=== PATIENT | female | born 1950 | race Caucasian/White ===

== ENCOUNTER 2022-01-03 10:41 | Inpatient (IN) ==
[2022-01-03] MEDS ORDERED: SOLU-Medrol 125 MG VIAL IVP NR (10:48)
[2022-01-03] MEDS ORDERED: LEVAQUIN PREMIX IV 750 MG 750 MG/150 ML BAG IV SCH (11:00)
[2022-01-03 11:40] LABS: BASOPHILS # (AUTO) 0.2 X10^3/uL (0.0-0.1); BASOPHILS % (AUTO) 1.6 % (0.2-1.0); EOSINOPHILS # (AUTO) 0.5 x10^3/uL (0.0-0.2); HEMATOCRIT 36.9 % (36.0-47.0); HEMOGLOBIN 12.6 g/dL (12.0-16.0); LYMPHOCYTES # (AUTO) 1.8 X10^3/uL (1.3-2.9); LYMPHOCYTES % (AUTO) 15.8 % (21.0-51.0); MEAN CORPUSCULAR HEMOGLOBIN 30.2 pg (27.0-34.0); MEAN CORPUSCULAR HGB CONC 34.1 g/dL (33.0-35.0); MEAN CORPUSCULAR VOLUME 88.6 fL (80.0-100.0); MEAN PLATELET VOLUME 6.3 fL (7.4-11.0); MONOCYTES # (AUTO) 0.9 x10^3/uL (0.3-0.8); MONOCYTES % (AUTO) 7.7 % (0.0-13.0); NEUTROPHILS # (AUTO) 8.1 x10^3/uL (2.2-4.8); NEUTROPHILS % (AUTO) 70.9 % (42.0-75.0); RED BLOOD COUNT 4.17 X10^6/uL (3.5-5.4); RED CELL DISTRIBUTION WIDTH 16.2 % (11.6-16.5); WHITE BLOOD COUNT 11.4 X10^3/uL (3.6-10.0)
[2022-01-03 11:49] LABS: ALANINE AMINOTRANSFERASE 33 Units/L (12-78); ALBUMIN 2.5 g/dL (3.4-5.0); ALKALINE PHOSPHATASE 146 Units/L (46-116); ASPARTATE AMINO TRANSFERASE 32 Units/L (15-37); BLOOD UREA NITROGEN 21 mg/dL (7-18); CALCIUM 8.7 mg/dL (8.5-10.1); CARBON DIOXIDE 31.6 mmol/L (21-32); CHLORIDE 99 mmol/L (98-107); COR CA(FOR HYPOALB) 9.9 mg/dL (8.5-10.1); SODIUM 136 mmol/L (136-145); TOTAL PROTEIN 7.8 g/dL (6.4-8.2); eGFR NON BLACK RACES > 60 (>60)
[2022-01-03 12:58] VITALS: BMI 23.3
[2022-01-03] MEDS ORDERED: NS 1/2 1,000 ML IV 1,000 ML IV ONE (13:31)
[2022-01-03] MEDS: DUONEB 0.5 MG/3 MG (3 mL) NEB SCH ×3 (14:04→20:23)
[2022-01-03] MEDS: NS 1/2 1,000 ML IV 1,000 ML IV SCH (14:50)
[2022-01-03] MEDS: FORTAZ or TAZICEF VIAL INJ 1 G in NS 100 ML IV 100 ML IV SCH ×2 (14:50→21:11)
[2022-01-03] MEDS: LEVAQUIN PREMIX IV 500 MG 500 MG/100 ML BAG IV SCH (16:05)
[2022-01-03] MEDS ORDERED: COLACE CAP 100 MG PO ONE (19:44)
[2022-01-03] MEDS ORDERED: SOLU-Medrol 40 MG VIAL ONE (19:44)
--- NOTE | 2022-01-03 19:51 | RAD ---
EXAM: CHEST X-RAYHISTORY: Pneumonia.TECHNIQUE: PA and lateral chest x-ray.COMPARISON: None available.FINDINGS:The heart size and mediastinum are within normal limits. The visualized bony structures are within normal limits.There is mild prominence of the bronchopulmonary markings, most prominent in the lower lung rosas, right greater than left; DDX includes mild noncardiogenic pulmonary congestion, bronchitis, and bronchopneumonia (especially in the right lower lobe) in the appropriate clinical setting. Clinical correlation is advised.No focal lung consolidation/mass, pleural effusion, or pneumothorax is seen.IMPRESSION:1. Mild prominence of the bronchopulmonary markings, most prominent in the lower lung rosas, right greater than left; DDX includes mild noncardiogenic pulmonary congestion, bronchitis, and bronchopneumonia (especially in the right lower lobe) in the appropriate clinical setting. Clinical correlation is advised.2. Recommend clinical correlation and appropriate follow-up x-ray evaluation to ensure interval clearance as clinically warranted.3. Consider follow evaluation with noncontrast chest CT for further characterization as clinically warranted.Electronically signed by: Jacob Alejandre (Jan 03, 2022 19:49:45)
[2022-01-03] MEDS: PULMICORT NEB TX 0.5 MG NEB SCH (20:23)
[2022-01-03] MEDS ORDERED: COLACE CAP 100 MG PO SCH (21:00)
[2022-01-03] MEDS: SOLU-Medrol 40 MG VIAL IVP SCH ×2 (21:11→21:12)
[2022-01-04] MEDS: DUONEB 0.5 MG/3 MG (3 mL) NEB SCH ×6 (00:32→21:16)
[2022-01-04] MEDS: FORTAZ or TAZICEF VIAL INJ 1 G in NS 100 ML IV 100 ML IV SCH ×3 (05:09→21:02)
[2022-01-04] MEDS: SOLU-Medrol 40 MG VIAL IVP SCH ×3 (05:10→21:02)
[2022-01-04 05:33] LABS: BASOPHILS % (AUTO) 0.4 % (0.2-1.0); HEMATOCRIT 30.8 % (36.0-47.0); LYMPHOCYTES # (AUTO) 0.8 X10^3/uL (1.3-2.9); LYMPHOCYTES % (AUTO) 11.2 % (21.0-51.0); MEAN CORPUSCULAR HEMOGLOBIN 30.1 pg (27.0-34.0); MEAN CORPUSCULAR HGB CONC 34.4 g/dL (33.0-35.0); MEAN CORPUSCULAR VOLUME 87.5 fL (80.0-100.0); MEAN PLATELET VOLUME 6.6 fL (7.4-11.0); MONOCYTES # (AUTO) 0.1 x10^3/uL (0.3-0.8); MONOCYTES % (AUTO) 1.8 % (0.0-13.0); NEUTROPHILS # (AUTO) 6.3 x10^3/uL (2.2-4.8); NEUTROPHILS % (AUTO) 86.6 % (42.0-75.0); RED BLOOD COUNT 3.52 X10^6/uL (3.5-5.4); RED CELL DISTRIBUTION WIDTH 15.8 % (11.6-16.5); WHITE BLOOD COUNT 7.3 X10^3/uL (3.6-10.0)
[2022-01-04 05:40] LABS: HEMOGLOBIN 10.6 g/dL (12.0-16.0)
[2022-01-04 05:49] LABS: ALANINE AMINOTRANSFERASE 29 Units/L (12-78); ALBUMIN 2.3 g/dL (3.4-5.0); ALKALINE PHOSPHATASE 129 Units/L (46-116); ASPARTATE AMINO TRANSFERASE 27 Units/L (15-37); BLOOD UREA NITROGEN 22 mg/dL (7-18); CALCIUM 7.9 mg/dL (8.5-10.1); CARBON DIOXIDE 28.3 mmol/L (21-32); CHLORIDE 99 mmol/L (98-107); COR CA(FOR HYPOALB) 9.3 mg/dL (8.5-10.1); COR NA(FOR HYPERGLY) 138 mmol/L (136-145); CREATININE 0.68 mg/dL (0.55-1.02); SODIUM 137 mmol/L (136-145); TOTAL PROTEIN 7.2 g/dL (6.4-8.2); eGFR NON BLACK RACES > 60 (>60)
[2022-01-04 06:24] LABS: ABG ALLEN TEST POS; ABG BASE EXCESS 5.6 mmol/L (-2.0-2.0); ABG HCO3 29.8 mmol/L (22-26)
[2022-01-04] MEDS: NS 1/2 1,000 ML IV 1,000 ML IV SCH ×3 (07:31→15:18)
--- NOTE | 2022-01-04 07:34 | RAD ---
HISTORYCOPD; HYPOXIASTUDYCHEST, 1 VIEWCOMPARISONOne day prior.TECHNIQUEAP view of the chestFINDINGSCardiac and mediastinal contours are within normal limits. Lungs are hyperexpanded. Similar appearing patchy bibasilar opacities. Blunted right costophrenic sulcus. No pneumothorax.IMPRESSIONLung hyper expansion consistent with COPD. Patchy bibasilar opacities suspicious for pneumonia. Blunted right costophrenic sulcus can be seen with small pleural effusion or pleuro-parynchemal scarring.Electronically signed by: Joseph Hdz (Jan 04, 2022 07:33:06)
[2022-01-04] MEDS: PULMICORT NEB TX 0.5 MG NEB SCH ×2 (08:40→21:16)
[2022-01-04] MEDS: LOVENOX INJ 40 MG SYR SC SCH (09:20)
[2022-01-04] MEDS: COLACE CAP 100 MG PO SCH (09:20)
[2022-01-04] MEDS: LEVAQUIN PREMIX IV 500 MG 500 MG/100 ML BAG IV SCH (09:20)
[2022-01-04] MEDS: NORVASC TAB 5 MG PO SCH (09:20)
[2022-01-04] MEDS: ZyPREXA TAB 5 MG PO SCH ×2 (09:43→20:35)
--- NOTE | 2022-01-04 12:45 | DR.H&P ---
H&P History & Physical for Day of: H&P Date: 01/03/22 Chief Complaint Chief Complaint: Dyspnea and shortness of breath Allergies Allergies Allergy/AdvReac Type Severity Reaction Status Date / Time No Known Drug Allergies Allergy Verified 01/03/22 12:59 History of Present Illness History of Present Illness: This is a 71-year-old white female who presented to my office as a new patient today. She reported being in the hospital in [facility] in [place], [place] a few weeks ago. Since then she has developed worsening shortness of breath and dyspnea. She called the office a week ago we were not able to see her at that time as a new patient. She reported that her O2 sats were in the upper 80s at that time and she was instructed to go to the emergency department. Here in office today she reports she never went to the ER and is noted she has a O2 sat of 81% on room air my office. She has audible chest congestion without auscultation in is tachypneic as well. She is breathing nearly 30 times a minute here in the office so I decided to go ahead and direct admit her. Her reasoning for not going to the emergency department last week was she did not want a wait in the ER to be seen. I direct admitted her to the ICU start her home jet nebs along with IV Solu-Medrol and IV Fortaz and Nestor says she has a history of COPD with multiple exacerbations. She reports this have stopped smoking 20 years ago. Past Medical History Past Medical History: COPD Past Surgical History Surgical History: Appendectomy and Cholecystectomy Family History Family Medical History: Diabetes Mellitus and Cancer Social History Does patient currently use any type of tobacco product: No Have you used tobacco products in the last 12 months: No Type of Tobacco Use: None Does any household member use tobacco: Yes Alcohol Use: None Drug Use: None Medications Home Medications: No Known Drug Allergies Allergy (Verified 01/03/22 12:59) CONTINUE taking the following medications acetaminophen 325 mg capsule (Tylenol) 500 mg Q6HR PRN 01/03/22 [History] albuterol 90 mcg/actuation aerosol inhaler See Rx Instructions .Route .COMPLEX PRN 01/03/22 [History] albuterol sulfate 90 mcg/actuation aerosol inhaler (ProAir HFA) 2 puff inhalation Q4HR PRN 01/03/22 [History] amlodipine 5 mg tablet 5 mg DAILY 01/03/22 [History] budesonide-formoterol HFA 160 mcg-4.5 mcg/actuation aerosol inhaler (Symbicort) 1 puff inhalation BID 01/03/22 [History] docusate sodium 100 mg capsule 100 mg PO DAILY 01/03/22 [History] fluticasone 250 mcg-salmeterol 50 mcg/dose blistr powdr for inhalation 1 ea inhalation BID 01/03/22 [History] loratadine 10 mg tablet 10 mg QAM 01/03/22 [History] magnesium hydroxide 400 mg/5 mL oral suspension (Milk of Magnesia) 30 ml DAILY P RN 01/03/22 [History] avcvejxx-tji-rrpkw acid 0.4 mg-lycopene 300 mcg-lutein 250 mcg tablet (Centrum Silver) 1 tab PO DAILY 01/03/22 [History] olanzapine 5 mg tablet (Zyprexa) 5 mg BID 01/03/22 [History] pravastatin 10 mg tablet 10 mg QHS 01/03/22 [History] tiotropium bromide 18 mcg capsule with inhalation device (Spiriva with HandiHaler) 18 mcg inhalation DAILYAC 01/03/22 [History] tiotropium bromide 2.5 mcg/actuation mist for inhalation (Spiriva Respimat) 2 puff inhalation DAILY 01/03/22 [History] Labs Result Diagrams: 01/04/22 04:08 01/04/22 04:08 Labs: 01/03/22 11:55 Sputum - Expectorated Sputum Sputum Culture - Preliminary 01/03/22 11:55 Sputum - Expectorated Sputum - Final Laboratory WBC 7.3 X10^3/uL (3.6-10.0) 01/04/22 04:08 RBC 3.52 X10^6/uL (3.5-5.4) 01/04/22 04:08 Hgb 10.6 g/dL (12.0-16.0) L D 01/04/22 04:08 Hct 30.8 % (36.0-47.0) L 01/04/22 04:08 MCV 87.5 fL (80.0-100.0) 01/04/22 04:08 MCH 30.1 pg (27.0-34.0) 01/04/22 04:08 MCHC 34.4 g/dL (33.0-35.0) 01/04/22 04:08 RDW 15.8 % (11.6-16.5) 01/04/22 04:08 Plt Count 702 X10^3/uL (150.0-450.0) H 01/04/22 04:08 MPV 6.6 fL (7.4-11.0) L 01/04/22 04:08 Neut % (Auto) 86.6 % (42.0-75.0) H 01/04/22 04:08 Lymph % (Auto) 11.2 % (21.0-51.0) L 01/04/22 04:08 [place] % (Auto) 1.8 % (0.0-13.0) 01/04/22 04:08 Eos % (Auto) 0.0 % (0.9-2.9) L 01/04/22 04:08 Baso % (Auto) 0.4 % (0.2-1.0) 01/04/22 04:08 Neut # (Auto) 6.3 x10^3/uL (2.2-4.8) H 01/04/22 04:08 Lymph # (Auto) 0.8 X10^3/uL (1.3-2.9) L 01/04/22 04:08 [place] # (Auto) 0.1 x10^3/uL (0.3-0.8) L 01/04/22 04:08 Eos # (Auto) 0.0 x10^3/uL (0.0-0.2) 01/04/22 04:08 Baso # (Auto) 0.0 X10^3/uL (0.0-0.1) 01/04/22 04:08 Absolute Nucleated RBC 0.0 /100WBC 01/04/22 04:08 Sample Site Rrad 01/04/22 06:23 ABG pH 7.470 (7.35-7.45) H 01/04/22 06:23 ABG pCO2 41.0 mmHg (35.0-45.0) 01/04/22 06:23 ABG pO2 60.0 mmHg (80.0-100.0) L 01/04/22 06:23 ABG HCO3 29.8 mmol/L (22-26) H 01/04/22 06:23 ABG O2 Saturation 92.0 % (90-100) 01/04/22 06:23 ABG Base Excess 5.6 mmol/L (-2.0-2.0) H 01/04/22 06:23 Michael Test Pos 01/04/22 06:23 A-a Gradient 88.0 mmHg 01/04/22 06:23 FiO2 28.0 01/04/22 06:23 Blood Gas Comments Christophe abg well-mtf 01/04/22 06:23 Sodium 137 mmol/L (136-145) 01/04/22 04:08 Corrected Sodium 138 mmol/L (136-145) 01/04/22 04:08 Potassium 4.2 mmol/L (3.5-5.1) 01/04/22 04:08 Chloride 99 mmol/L (98-107) 01/04/22 04:08 Carbon Dioxide 28.3 mmol/L (21-32) 01/04/22 04:08 BUN 22 mg/dL (7-18) H 01/04/22 04:08 Creatinine 0.68 mg/dL (0.55-1.02) 01/04/22 04:08 Est GFR (MDRD) Af Amer > 60 (>60) 01/04/22 04:08 Est GFR (MDRD) Non-Af > 60 (>60) 01/04/22 04:08 Glucose 154 mg/dL (65-99) H 01/04/22 04:08 Calcium 7.9 mg/dL (8.5-10.1) L 01/04/22 04:08 Corrected Calcium 9.3 mg/dL (8.5-10.1) 01/04/22 04:08 Total Bilirubin 0.30 mg/dL (0.2-1.0) 01/04/22 04:08 AST 27 Units/L (15-37) 01/04/22 04:08 ALT 29 Units/L (12-78) 01/04/22 04:08 Alkaline Phosphatase 129 Units/L (46-116) H 01/04/22 04:08 Total Protein 7.2 g/dL (6.4-8.2) 01/04/22 04:08 Albumin 2.3 g/dL (3.4-5.0) L 01/04/22 04:08 Globulin 4.9 g/dL (2.5-4.5) H 01/04/22 04:08 Albumin/Globulin Ratio 0.5 Ratio (1.1-2.1) L 01/04/22 04:08 Review of Systems Constitutional: Weakness and Malaise Eyes: No Symptoms Reported ENT: No Symptoms Reported Respiratory: Cough, Shortness of Breath, Hemoptysis, SOB with Excertion, Sputum and Wheezing Cardiovascular: No Symptoms Reported Gastrointestinal: No Symptoms Reported Genitourinary: No Symptoms Reported Musculoskeletal: No Symptoms Reported Skin: No Symptoms Reported Neurological: No Symptoms Reported Physical Exam Vital Signs: Temperature 98.3 F Pulse Rate 93 Respiratory Rate 43 Blood Pressure 125/63 O2 Sat by Pulse Oximetry 93 Oriented: Normal, Time, Person and Place Eyes: Normal Ear: Normal Throat: Normal Respiratory: Rhonchi Throughout and Wheezes Throughout Cardiovascular: Normal Auscultation: Bowel Sounds: Normal Palpation: Normal Tenderness: Normal Skin: Normal Musculoskeletal: Normal Psychiatric: Normal Mood Description: Calm Affect: Normal Speech Pattern: Clear and Appropriate Assessment/Plan (1) COPD exacerbation: Status: Acute Plan: Jet nebs with Solu-Medrol 125 mg IV x1 then 60 mg IV every 8 hours, IV Fortaz and IV Levaquin. Check chest x-ray CMP's, CBC and ABG. We will repeat labs and chest x-ray again in the morning. (2) Hypoxia: Status: Acute Plan: Supplemental O2 via nasal cannula at 2 L (3) History of psychosis: Status: Acute Plan: Continue olanzapine
--- NOTE | 2022-01-04 12:54 | PCM.PROG ---
Progress Note Progress Note for Day of Date of Exam: 01/04/22 Subjective Subjective: The patient reports she is breathing much better today. Her O2 sat is mornings 93% on 2 L nasal cannula. Auscultation reveals she has less rhonchi and no wheezing this morning. I am going to change her from albuterol jet nebs to DuoNeb this morning. Chest x-ray shows basilar pneumonia in which she is covered with IV Fortaz and Levaquin. She has not had any psychotic episodes since admission and is stable on the olanzapine. Plan on rechecking her CBC, CMP, ABG and chest x-ray in the morning. Her ABG is improved since coming in on admission yesterday. Past Medical Family Social History Allergies: Allergies No Known Drug Allergies Allergy (Verified 01/03/22 12:59) Review of Systems ROS: No change since H&P Vital Signs and I&O's Vital Signs: Temperature 98.3 F Pulse Rate 93 Respiratory Rate 43 Blood Pressure 125/63 O2 Sat by Pulse Oximetry 93 Intake and Output: Intake & Output 01/02/22 01/03/22 01/04/22 01/05/22 11:59 11:59 11:59 11:59 Intake Total 1961 Balance 1961 Physical Exam Oriented: Normal, Time, Person and Place Eyes: Normal Ear: Normal Throat: Normal Respiratory: Right, Left and Rhonchi Cardiovascular: Normal Auscultation: Bowel Sounds: Normal Tenderness: Normal Skin: Normal Musculoskeletal: Normal Psychiatric: Normal Mood Description: Calm Affect: Normal Speech Pattern: Clear and Appropriate Laboratory and Diagnostics Result Diagrams: 01/04/22 04:08 01/04/22 04:08 Labs: 01/03/22 11:55 Sputum - Expectorated Sputum Sputum Culture - Preliminary 01/03/22 11:55 Sputum - Expectorated Sputum - Final Laboratory WBC 7.3 X10^3/uL (3.6-10.0) 01/04/22 04:08 RBC 3.52 X10^6/uL (3.5-5.4) 01/04/22 04:08 Hgb 10.6 g/dL (12.0-16.0) L D 01/04/22 04:08 Hct 30.8 % (36.0-47.0) L 01/04/22 04:08 MCV 87.5 fL (80.0-100.0) 01/04/22 04:08 MCH 30.1 pg (27.0-34.0) 01/04/22 04:08 MCHC 34.4 g/dL (33.0-35.0) 01/04/22 04:08 RDW 15.8 % (11.6-16.5) 01/04/22 04:08 Plt Count 702 X10^3/uL (150.0-450.0) H 01/04/22 04:08 MPV 6.6 fL (7.4-11.0) L 01/04/22 04:08 Neut % (Auto) 86.6 % (42.0-75.0) H 01/04/22 04:08 Lymph % (Auto) 11.2 % (21.0-51.0) L 01/04/22 04:08 [place] % (Auto) 1.8 % (0.0-13.0) 01/04/22 04:08 Eos % (Auto) 0.0 % (0.9-2.9) L 01/04/22 04:08 Baso % (Auto) 0.4 % (0.2-1.0) 01/04/22 04:08 Neut # (Auto) 6.3 x10^3/uL (2.2-4.8) H 01/04/22 04:08 Lymph # (Auto) 0.8 X10^3/uL (1.3-2.9) L 01/04/22 04:08 [place] # (Auto) 0.1 x10^3/uL (0.3-0.8) L 01/04/22 04:08 Eos # (Auto) 0.0 x10^3/uL (0.0-0.2) 01/04/22 04:08 Baso # (Auto) 0.0 X10^3/uL (0.0-0.1) 01/04/22 04:08 Absolute Nucleated RBC 0.0 /100WBC 01/04/22 04:08 Sample Site Rrad 01/04/22 06:23 ABG pH 7.470 (7.35-7.45) H 01/04/22 06:23 ABG pCO2 41.0 mmHg (35.0-45.0) 01/04/22 06:23 ABG pO2 60.0 mmHg (80.0-100.0) L 01/04/22 06:23 ABG HCO3 29.8 mmol/L (22-26) H 01/04/22 06:23 ABG O2 Saturation 92.0 % (90-100) 01/04/22 06:23 ABG Base Excess 5.6 mmol/L (-2.0-2.0) H 01/04/22 06:23 Michael Test Pos 01/04/22 06:23 A-a Gradient 88.0 mmHg 01/04/22 06:23 FiO2 28.0 01/04/22 06:23 Blood Gas Comments Christophe abg well-mtf 01/04/22 06:23 Sodium 137 mmol/L (136-145) 01/04/22 04:08 Corrected Sodium 138 mmol/L (136-145) 01/04/22 04:08 Potassium 4.2 mmol/L (3.5-5.1) 01/04/22 04:08 Chloride 99 mmol/L (98-107) 01/04/22 04:08 Carbon Dioxide 28.3 mmol/L (21-32) 01/04/22 04:08 BUN 22 mg/dL (7-18) H 01/04/22 04:08 Creatinine 0.68 mg/dL (0.55-1.02) 01/04/22 04:08 Est GFR (MDRD) Af Amer > 60 (>60) 01/04/22 04:08 Est GFR (MDRD) Non-Af > 60 (>60) 01/04/22 04:08 Glucose 154 mg/dL (65-99) H 01/04/22 04:08 Calcium 7.9 mg/dL (8.5-10.1) L 01/04/22 04:08 Corrected Calcium 9.3 mg/dL (8.5-10.1) 01/04/22 04:08 Total Bilirubin 0.30 mg/dL (0.2-1.0) 01/04/22 04:08 AST 27 Units/L (15-37) 01/04/22 04:08 ALT 29 Units/L (12-78) 01/04/22 04:08 Alkaline Phosphatase 129 Units/L (46-116) H 01/04/22 04:08 Total Protein 7.2 g/dL (6.4-8.2) 01/04/22 04:08 Albumin 2.3 g/dL (3.4-5.0) L 01/04/22 04:08 Globulin 4.9 g/dL (2.5-4.5) H 01/04/22 04:08 Albumin/Globulin Ratio 0.5 Ratio (1.1-2.1) L 01/04/22 04:08 Radiology Reviewed: Yes Plan (1) COPD exacerbation: Status: Acute Narrative Support Text: Overall improved since admission yesterday. Plan: Jet nebs with Solu-Medrol 125 mg IV x1 then 60 mg IV every 8 hours, IV Fortaz and IV Levaquin. Check chest x-ray CMP's, CBC and ABG. We will repeat labs and chest x-ray again in the morning. (2) Hypoxia: Status: Acute Narrative Support Text: Overall improved since admission yesterday. Plan: Supplemental O2 via nasal cannula at 2 L (3) History of psychosis: Status: Acute Narrative Support Text: History of psychosis stable Plan: Continue olanzapine
[2022-01-04] MEDS ORDERED: NS 1/2 1,000 ML IV 1,000 ML IV ONE (13:30)
[2022-01-04] MEDS: PRAVASTATIN 10 MG PO SCH (20:36)
[2022-01-05] MEDS: DUONEB 0.5 MG/3 MG (3 mL) NEB SCH ×6 (01:03→21:00)
[2022-01-05] MEDS ORDERED: NS 1/2 1,000 ML IV 1,000 ML IV ONE ×2 (03:16→18:52)
[2022-01-05] MEDS: NS 1/2 1,000 ML IV 1,000 ML IV SCH ×2 (04:00→19:09)
[2022-01-05] MEDS: FORTAZ or TAZICEF VIAL INJ 1 G in NS 100 ML IV 100 ML IV SCH ×3 (05:14→21:23)
[2022-01-05] MEDS: SOLU-Medrol 40 MG VIAL IVP SCH ×3 (05:14→21:23)
[2022-01-05 06:10] LABS: BASOPHILS % (AUTO) 0.1 % (0.2-1.0); HEMATOCRIT 28.6 % (36.0-47.0); HEMOGLOBIN 9.8 g/dL (12.0-16.0); LYMPHOCYTES # (AUTO) 1.2 X10^3/uL (1.3-2.9); LYMPHOCYTES % (AUTO) 9.1 % (21.0-51.0); MEAN CORPUSCULAR HEMOGLOBIN 30.1 pg (27.0-34.0); MEAN CORPUSCULAR HGB CONC 34.1 g/dL (33.0-35.0); MEAN CORPUSCULAR VOLUME 88.3 fL (80.0-100.0); MEAN PLATELET VOLUME 6.2 fL (7.4-11.0); MONOCYTES # (AUTO) 0.7 x10^3/uL (0.3-0.8); MONOCYTES % (AUTO) 5.4 % (0.0-13.0); NEUTROPHILS # (AUTO) 11.5 x10^3/uL (2.2-4.8); NEUTROPHILS % (AUTO) 85.4 % (42.0-75.0); RED BLOOD COUNT 3.24 X10^6/uL (3.5-5.4); WHITE BLOOD COUNT 13.5 X10^3/uL (3.6-10.0)
[2022-01-05 06:15] LABS: ALANINE AMINOTRANSFERASE 23 Units/L (12-78); ALKALINE PHOSPHATASE 99 Units/L (46-116); ASPARTATE AMINO TRANSFERASE 20 Units/L (15-37); BLOOD UREA NITROGEN 15 mg/dL (7-18); CALCIUM 7.5 mg/dL (8.5-10.1); CARBON DIOXIDE 28.7 mmol/L (21-32); CHLORIDE 104 mmol/L (98-107); COR CA(FOR HYPOALB) 9.1 mg/dL (8.5-10.1); COR NA(FOR HYPERGLY) 142 mmol/L (136-145); CREATININE 0.69 mg/dL (0.55-1.02); SODIUM 140 mmol/L (136-145); TOTAL PROTEIN 6.1 g/dL (6.4-8.2); eGFR NON BLACK RACES > 60 (>60)
--- NOTE | 2022-01-05 08:14 | RAD ---
HISTORYCOPD, PNEUMONIA HX: EMPHYSEMA, HTNSTUDYCHEST, 1 VIEWCOMPARISONChest radiograph dated January 04, 2022FINDINGSThe trachea is midline. The cardiac silhouette is unremarkable. The lungs demonstrate abnormal interstitial thickening throughout the lung rosas, suggesting a diffuse bronchitis/bronchiolitis, with right lower lobe ground-glass disease which is most concerning for pneumonia. This is slightly improved compared to the prior examination. No other changes seen. The bony thorax is unremarkable.IMPRESSIONUnchanged findings of bronchitis/bronchiolitis and right lower lobe bronchopneumonia.Electronically signed by: MARK MAXWELL III (Jan 05, 2022 08:12:51)
[2022-01-05] MEDS: LEVAQUIN PREMIX IV 500 MG 500 MG/100 ML BAG IV SCH (08:36)
[2022-01-05] MEDS: NORVASC TAB 5 MG PO SCH (08:37)
[2022-01-05] MEDS: ZyPREXA TAB 5 MG PO SCH ×2 (08:37→20:40)
[2022-01-05] MEDS: COLACE CAP 100 MG PO SCH (08:37)
[2022-01-05] MEDS: LOVENOX INJ 40 MG SYR SC SCH (08:42)
[2022-01-05] MEDS: PULMICORT NEB TX 0.5 MG NEB SCH ×2 (08:54→21:00)
[2022-01-05] MEDS ORDERED: ZOFRAN INJ 4 MG VIAL IVP PRN (13:20)
[2022-01-05] MEDS ORDERED: CHLORASEPTIC SPRAY MT PRN (14:29)
[2022-01-05] MEDS: PRAVASTATIN 10 MG PO SCH (21:22)
[2022-01-06] MEDS: DUONEB 0.5 MG/3 MG (3 mL) NEB SCH ×6 (00:30→21:08)
[2022-01-06] MEDS: FORTAZ or TAZICEF VIAL INJ 1 G in NS 100 ML IV 100 ML IV SCH ×3 (05:07→21:14)
[2022-01-06] MEDS: SOLU-Medrol 40 MG VIAL IVP SCH ×2 (05:07→21:14)
[2022-01-06 06:10] LABS: BASOPHILS % (AUTO) 0.3 % (0.2-1.0); HEMATOCRIT 29.9 % (36.0-47.0); HEMOGLOBIN 10.1 g/dL (12.0-16.0); LYMPHOCYTES # (AUTO) 1.1 X10^3/uL (1.3-2.9); LYMPHOCYTES % (AUTO) 8.7 % (21.0-51.0); MEAN CORPUSCULAR HGB CONC 33.7 g/dL (33.0-35.0); MEAN CORPUSCULAR VOLUME 88.9 fL (80.0-100.0); MEAN PLATELET VOLUME 6.2 fL (7.4-11.0); MONOCYTES # (AUTO) 0.9 x10^3/uL (0.3-0.8); MONOCYTES % (AUTO) 7.1 % (0.0-13.0); NEUTROPHILS # (AUTO) 10.4 x10^3/uL (2.2-4.8); NEUTROPHILS % (AUTO) 83.9 % (42.0-75.0); RED BLOOD COUNT 3.36 X10^6/uL (3.5-5.4); RED CELL DISTRIBUTION WIDTH 16.2 % (11.6-16.5); WHITE BLOOD COUNT 12.4 X10^3/uL (3.6-10.0)
[2022-01-06 06:30] LABS: ALANINE AMINOTRANSFERASE 23 Units/L (12-78); ALBUMIN 2.1 g/dL (3.4-5.0); ALKALINE PHOSPHATASE 94 Units/L (46-116); ASPARTATE AMINO TRANSFERASE 19 Units/L (15-37); BLOOD UREA NITROGEN 19 mg/dL (7-18); CALCIUM 7.6 mg/dL (8.5-10.1); CHLORIDE 105 mmol/L (98-107); COR CA(FOR HYPOALB) 9.1 mg/dL (8.5-10.1); COR NA(FOR HYPERGLY) 139 mmol/L (136-145); CREATININE 0.65 mg/dL (0.55-1.02); SODIUM 137 mmol/L (136-145); eGFR NON BLACK RACES > 60 (>60)
[2022-01-06 06:53] LABS: BAND NEUTROPHILS % 4 % (0-10); PLATELET MORPHOLOGY COMMENT NORMAL (NORMAL)
[2022-01-06] MEDS: LEVAQUIN PREMIX IV 500 MG 500 MG/100 ML BAG IV SCH (08:23)
[2022-01-06] MEDS: LOVENOX INJ 40 MG SYR SC SCH (08:24)
[2022-01-06] MEDS: COLACE CAP 100 MG PO SCH (08:24)
[2022-01-06] MEDS: NORVASC TAB 5 MG PO SCH (08:24)
[2022-01-06] MEDS: ZyPREXA TAB 5 MG PO SCH ×2 (08:24→20:01)
[2022-01-06] MEDS: NS 1/2 1,000 ML IV 1,000 ML IV SCH ×3 (09:17→22:00)
[2022-01-06] MEDS: PULMICORT NEB TX 0.5 MG NEB SCH ×2 (09:23→21:08)
[2022-01-06] MEDS ORDERED: NS 1/2 1,000 ML IV 1,000 ML IV ONE ×2 (10:38→19:45)
[2022-01-06] MEDS ORDERED: MAALOX or MYLANTA PO PRN (19:27)
[2022-01-06] MEDS ORDERED: MILK OF MAGNESIA PO PRN (19:28)
[2022-01-06] MEDS: PRAVASTATIN 10 MG PO SCH (20:01)
[2022-01-07] MEDS: DUONEB 0.5 MG/3 MG (3 mL) NEB SCH ×6 (00:05→21:13)
[2022-01-07] MEDS: FORTAZ or TAZICEF VIAL INJ 1 G in NS 100 ML IV 100 ML IV SCH ×3 (05:09→21:20)
[2022-01-07 06:14] LABS: BASOPHILS # (AUTO) 0.1 X10^3/uL (0.0-0.1); HEMATOCRIT 32.5 % (36.0-47.0); HEMOGLOBIN 11.1 g/dL (12.0-16.0); LYMPHOCYTES # (AUTO) 1.5 X10^3/uL (1.3-2.9); LYMPHOCYTES % (AUTO) 14.2 % (21.0-51.0); MEAN CORPUSCULAR HEMOGLOBIN 30.3 pg (27.0-34.0); MEAN CORPUSCULAR HGB CONC 34.4 g/dL (33.0-35.0); MEAN CORPUSCULAR VOLUME 88.1 fL (80.0-100.0); MEAN PLATELET VOLUME 6.2 fL (7.4-11.0); MONOCYTES # (AUTO) 0.9 x10^3/uL (0.3-0.8); MONOCYTES % (AUTO) 8.3 % (0.0-13.0); NEUTROPHILS # (AUTO) 8.3 x10^3/uL (2.2-4.8); NEUTROPHILS % (AUTO) 76.5 % (42.0-75.0); RED BLOOD COUNT 3.68 X10^6/uL (3.5-5.4); RED CELL DISTRIBUTION WIDTH 16.2 % (11.6-16.5); WHITE BLOOD COUNT 10.8 X10^3/uL (3.6-10.0)
[2022-01-07 06:31] LABS: ALANINE AMINOTRANSFERASE 28 Units/L (12-78); ALBUMIN 2.4 g/dL (3.4-5.0); ALKALINE PHOSPHATASE 90 Units/L (46-116); ASPARTATE AMINO TRANSFERASE 24 Units/L (15-37); BLOOD UREA NITROGEN 23 mg/dL (7-18); CALCIUM 7.9 mg/dL (8.5-10.1); CARBON DIOXIDE 29.2 mmol/L (21-32); CHLORIDE 103 mmol/L (98-107); COR CA(FOR HYPOALB) 9.2 mg/dL (8.5-10.1); COR NA(FOR HYPERGLY) 136 mmol/L (136-145); CREATININE 0.65 mg/dL (0.55-1.02); SODIUM 136 mmol/L (136-145); TOTAL PROTEIN 6.2 g/dL (6.4-8.2); eGFR NON BLACK RACES > 60 (>60)
[2022-01-07 07:24] LABS: BAND NEUTROPHILS % 4 % (0-10); PLATELET MORPHOLOGY COMMENT NORMAL (NORMAL)
[2022-01-07] MEDS: ZyPREXA TAB 5 MG PO SCH ×2 (08:17→20:52)
[2022-01-07] MEDS: COLACE CAP 100 MG PO SCH (08:17)
[2022-01-07] MEDS: NORVASC TAB 5 MG PO SCH (08:17)
[2022-01-07] MEDS: LOVENOX INJ 40 MG SYR SC SCH (08:18)
[2022-01-07] MEDS: LEVAQUIN PREMIX IV 500 MG 500 MG/100 ML BAG IV SCH (08:18)
[2022-01-07] MEDS: SOLU-Medrol 40 MG VIAL IVP SCH ×2 (08:18→20:52)
[2022-01-07] MEDS: PULMICORT NEB TX 0.5 MG NEB SCH ×2 (09:15→21:13)
[2022-01-07] MEDS: NS 1/2 1,000 ML IV 1,000 ML IV SCH ×2 (13:23→14:49)
--- NOTE | 2022-01-07 14:36 | PCM.PROG ---
Progress Note Progress Note for Day of Date of Exam: 01/07/22 Subjective Subjective: The patient reports she is breathing better this morning. They have her on 3 L this morning and she satting in the upper 90s. I will have not bring her back 2 L this morning see how she does. We will continue the current course of treatment and start planning for home discharge in the next 1 to 2 days. We will be discharging her pending what her O2 sat is in the next day or so we more than likely will be giving her home O2 with duo nebs, Symbicort, p.o. antibiotics and nebulizer. Past Medical Family Social History Allergies: Allergies bacitracin [From Neosporin ([id number])] Adverse Reaction (Verified 01/04/22 14:15) RASH morphine Adverse Reaction (Verified 01/04/22 14:15) CARDIOVASCULAR COMPLICATIONS neomycin [From Neosporin ([id number])] Adverse Reaction (Verified 01/04/22 14:15) RASH polymyxin B [From Neosporin ([id number])] Adverse Reaction (Verified 01/04/22 14:15) RASH Review of Systems ROS: No change since H&P Vital Signs and I&O's Vital Signs: Temperature 98.5 F Pulse Rate [Left Brachial] 93 Pulse Rate 89 Respiratory Rate 22 Blood Pressure [Left Arm] 146/67 Blood Pressure 119/61 O2 Sat by Pulse Oximetry 91 Intake and Output: Intake & Output 01/05/22 01/06/22 01/07/22 01/08/22 11:59 11:59 11:59 11:59 Intake Total 2990 / 2990 3770 / 3770 3060 / 3060 Output Total 0 / 0 Balance 2990 / 2990 3770 / 3770 3060 / 3060 Physical Exam Oriented: Normal, Time, Person and Place Eyes: Normal Ear: Normal Throat: Normal Respiratory: Right, Left and Rhonchi Cardiovascular: Normal Auscultation: Bowel Sounds: Normal Tenderness: Normal Skin: Normal Musculoskeletal: Normal Psychiatric: Normal Mood Description: Calm Affect: Normal Speech Pattern: Clear and Appropriate Laboratory and Diagnostics Result Diagrams: 01/07/22 05:34 01/07/22 05:34 Labs: 01/03/22 11:55 Sputum - Expectorated Sputum Sputum Culture - Preliminary 01/03/22 11:55 Sputum - Expectorated Sputum - Final 01/03/22 11:22 Blood Blood Culture - Preliminary 01/03/22 11:15 Blood Blood Culture - Preliminary Laboratory WBC 10.8 X10^3/uL (3.6-10.0) H 01/07/22 05:34 RBC 3.68 X10^6/uL (3.5-5.4) 01/07/22 05:34 Hgb 11.1 g/dL (12.0-16.0) L 01/07/22 05:34 Hct 32.5 % (36.0-47.0) L 01/07/22 05:34 MCV 88.1 fL (80.0-100.0) 01/07/22 05:34 MCH 30.3 pg (27.0-34.0) 01/07/22 05:34 MCHC 34.4 g/dL (33.0-35.0) 01/07/22 05:34 RDW 16.2 % (11.6-16.5) 01/07/22 05:34 Plt Count 581 X10^3/uL (150.0-450.0) H 01/07/22 05:34 Plt Count Comment Increased (ADEQUATE) A 01/07/22 05:34 MPV 6.2 fL (7.4-11.0) L 01/07/22 05:34 Neut % (Auto) 76.5 % (42.0-75.0) H 01/07/22 05:34 Lymph % (Auto) 14.2 % (21.0-51.0) L 01/07/22 05:34 [place] % (Auto) 8.3 % (0.0-13.0) 01/07/22 05:34 Eos % (Auto) 0.0 % (0.9-2.9) L 01/07/22 05:34 Baso % (Auto) 1.0 % (0.2-1.0) 01/07/22 05:34 Neut # (Auto) 8.3 x10^3/uL (2.2-4.8) H 01/07/22 05:34 Lymph # (Auto) 1.5 X10^3/uL (1.3-2.9) 01/07/22 05:34 [place] # (Auto) 0.9 x10^3/uL (0.3-0.8) H 01/07/22 05:34 Eos # (Auto) 0.0 x10^3/uL (0.0-0.2) 01/07/22 05:34 Baso # (Auto) 0.1 X10^3/uL (0.0-0.1) 01/07/22 05:34 Absolute Nucleated RBC 0.2 /100WBC 01/07/22 05:34 Total Counted 100 01/07/22 05:34 Neutrophils % (Manual) 66 % (39-76) 01/07/22 05:34 Band Neutrophils % 4 % (0-10) 01/07/22 05:34 Lymphocytes % (Manual) 20 % (13-43) 01/07/22 05:34 Monocytes % (Manual) 10 % (4-9) H 01/07/22 05:34 Plt Morphology Comment Normal (NORMAL) 01/07/22 05:34 RBC Morphology Normal (NORMAL) 01/07/22 05:34 Sample Site Rrad 01/04/22 06:23 ABG pH 7.470 (7.35-7.45) H 01/04/22 06:23 ABG pCO2 41.0 mmHg (35.0-45.0) 01/04/22 06:23 ABG pO2 60.0 mmHg (80.0-100.0) L 01/04/22 06:23 ABG HCO3 29.8 mmol/L (22-26) H 01/04/22 06:23 ABG O2 Saturation 92.0 % (90-100) 01/04/22 06:23 ABG Base Excess 5.6 mmol/L (-2.0-2.0) H 01/04/22 06:23 Michael Test Pos 01/04/22 06:23 A-a Gradient 88.0 mmHg 01/04/22 06:23 FiO2 28.0 01/04/22 06:23 Blood Gas Comments Christophe abg well-mtf 01/04/22 06:23 Sodium 136 mmol/L (136-145) 01/07/22 05:34 Corrected Sodium 136 mmol/L (136-145) 01/07/22 05:34 Potassium 4.9 mmol/L (3.5-5.1) 01/07/22 05:34 Chloride 103 mmol/L (98-107) 01/07/22 05:34 Carbon Dioxide 29.2 mmol/L (21-32) 01/07/22 05:34 BUN 23 mg/dL (7-18) H 01/07/22 05:34 Creatinine 0.65 mg/dL (0.55-1.02) 01/07/22 05:34 Est GFR (MDRD) Af Amer > 60 (>60) 01/07/22 05:34 Est GFR (MDRD) Non-Af > 60 (>60) 01/07/22 05:34 Glucose 115 mg/dL (65-99) H 01/07/22 05:34 Calcium 7.9 mg/dL (8.5-10.1) L 01/07/22 05:34 Corrected Calcium 9.2 mg/dL (8.5-10.1) 01/07/22 05:34 Total Bilirubin 0.20 mg/dL (0.2-1.0) 01/07/22 05:34 AST 24 Units/L (15-37) 01/07/22 05:34 ALT 28 Units/L (12-78) 01/07/22 05:34 Alkaline Phosphatase 90 Units/L (46-116) 01/07/22 05:34 Total Protein 6.2 g/dL (6.4-8.2) L 01/07/22 05:34 Albumin 2.4 g/dL (3.4-5.0) L 01/07/22 05:34 Globulin 3.8 g/dL (2.5-4.5) 01/07/22 05:34 Albumin/Globulin Ratio 0.6 Ratio (1.1-2.1) L 01/07/22 05:34 Resp Viral Panel (PCR) See scanned report 01/03/22 12:03 Radiology Reviewed: Yes Plan (1) COPD exacerbation: Status: Acute Plan: Jet nebs with Solu-Medrol 125 mg IV x1 then 60 mg IV every 8 hours, IV Fortaz and IV Levaquin. Check chest x-ray CMP's, CBC and ABG. We will repeat labs and chest x-ray again in the morning. (2) Hypoxia: Status: Acute Plan: Supplemental O2 via nasal cannula at 2 L (3) History of psychosis: Status: Acute Plan: Continue olanzapine
[2022-01-07] MEDS ORDERED: NS 1/2 1,000 ML IV 1,000 ML IV ONE (14:43)
[2022-01-07] MEDS: PRAVASTATIN 10 MG PO SCH (20:53)
--- NOTE | 2022-01-07 23:45 | RAD ---
HISTORYSOB ; PNEUMONIASTUDYCHEST, 1 VIEWCOMPARISONOctober 2021TECHNIQUEChest radiographic imaging, AP portable projection, 1 imageFINDINGSNo cardiomegaly.No focal airspace disease.Mild diffuse increased interstitial markings; particularly in the lower lobes.No pleural effusion.No pneumothorax.No acute osseous abnormality.IMPRESSIONNo significant interval acute cardiopulmonary changes.Electronically signed by: Chip Mayer (Jan 07, 2022 23:44:20)
[2022-01-08] MEDS: DUONEB 0.5 MG/3 MG (3 mL) NEB SCH ×3 (00:43→09:02)
[2022-01-08] MEDS ORDERED: NS 1/2 1,000 ML IV 1,000 ML IV ONE (04:47)
[2022-01-08] MEDS: NS 1/2 1,000 ML IV 1,000 ML IV SCH ×2 (05:15→08:48)
[2022-01-08] MEDS: FORTAZ or TAZICEF VIAL INJ 1 G in NS 100 ML IV 100 ML IV SCH (05:15)
[2022-01-08 06:13] LABS: BASOPHILS # (AUTO) 0.2 X10^3/uL (0.0-0.1); BASOPHILS % (AUTO) 1.9 % (0.2-1.0); EOSINOPHILS % (AUTO) 0.1 % (0.9-2.9); HEMOGLOBIN 11.3 g/dL (12.0-16.0); LYMPHOCYTES # (AUTO) 1.8 X10^3/uL (1.3-2.9); MEAN CORPUSCULAR HEMOGLOBIN 30.3 pg (27.0-34.0); MEAN CORPUSCULAR HGB CONC 34.2 g/dL (33.0-35.0); MEAN CORPUSCULAR VOLUME 88.6 fL (80.0-100.0); MEAN PLATELET VOLUME 6.3 fL (7.4-11.0); MONOCYTES # (AUTO) 0.8 x10^3/uL (0.3-0.8); MONOCYTES % (AUTO) 7.8 % (0.0-13.0); NEUTROPHILS # (AUTO) 7.3 x10^3/uL (2.2-4.8); NEUTROPHILS % (AUTO) 72.2 % (42.0-75.0); RED BLOOD COUNT 3.72 X10^6/uL (3.5-5.4); RED CELL DISTRIBUTION WIDTH 16.5 % (11.6-16.5); WHITE BLOOD COUNT 10.1 X10^3/uL (3.6-10.0)
[2022-01-08 06:19] LABS: BLOOD UREA NITROGEN 20 mg/dL (7-18); CALCIUM 8.1 mg/dL (8.5-10.1); CARBON DIOXIDE 33.3 mmol/L (21-32); CHLORIDE 103 mmol/L (98-107); CREATININE 0.62 mg/dL (0.55-1.02); SODIUM 142 mmol/L (136-145); eGFR NON BLACK RACES > 60 (>60)
[2022-01-08 06:53] LABS: BAND NEUTROPHILS % 2 % (0-10); METAMYELOCYTES % 2; MYELOCYTES % 1; PLATELET MORPHOLOGY COMMENT NORMAL (NORMAL)
[2022-01-08 08:07] VITALS: BP 144/73
[2022-01-08] MEDS: ZyPREXA TAB 5 MG PO SCH (08:41)
[2022-01-08] MEDS: COLACE CAP 100 MG PO SCH (08:41)
[2022-01-08] MEDS: SOLU-Medrol 40 MG VIAL IVP SCH (08:41)
[2022-01-08] MEDS: NORVASC TAB 5 MG PO SCH (08:41)
[2022-01-08] MEDS: LEVAQUIN PREMIX IV 500 MG 500 MG/100 ML BAG IV SCH (08:43)
[2022-01-08] MEDS: LOVENOX INJ 40 MG SYR SC SCH (08:43)
[2022-01-08] MEDS: PULMICORT NEB TX 0.5 MG NEB SCH (09:02)
[2022-01-08 11:55] LABS: ALANINE AMINOTRANSFERASE 29 Units/L (12-78); ALBUMIN 2.3 g/dL (3.4-5.0); ALKALINE PHOSPHATASE 77 Units/L (46-116); ASPARTATE AMINO TRANSFERASE 20 Units/L (15-37); COR CA(FOR HYPOALB) 9.5 mg/dL (8.5-10.1); TOTAL PROTEIN 5.9 g/dL (6.4-8.2)
== END 2022-01-08 12:00 | disposition home or self-care (01) | DRG 190 ==
LOC: EDBD → ICU 10:49 → MED/SURG 01-04 13:57
PROVIDERS: ADMIT Family Medicine; ATTEND Family Medicine
DX: R06.02 Shortness of breath; B37.89 Other sites of candidiasis; R47.1 Dysarthria and anarthria; J44.1 Chronic obstructive pulmonary disease with (acute) exacerbation; R09.02 Hypoxemia; Z86.59 Personal history of other mental and behavioral disorders; J14 Pneumonia due to Hemophilus influenzae; R13.11 Dysphagia, oral phase; R26.89 Other abnormalities of gait and mobility